=== PATIENT | male | born 1995 | race Caucasian/White ===

== ENCOUNTER → 2016-11-11 | Outpatient (CLI) | payer BC ==
[~2016-11-11] MED LIST: CYAN1TAB46 PO; DOCU-168 PO; OMEP-122 PO; RIVA20TA PO
--- NOTE | 2016-11-11 14:27 | DI ---
Indication: ITS.REASON: M79.604 PAIN IN RIGHT LEG; Z86.711 HX OF PE PROCEDURE: US VENOUS DUPLEX, LOWER EXT RT: Encounter: Initial Comparison: February 27, 2016 Technique: Color Doppler duplex and grayscale sonographic imaging of the right lower extremity was performed. Findings: There is no evidence for acute deep venous thrombosis in the right thigh. Specifically, serial graded compression was performed from the inguinal ligament to the popliteal bifurcation, on the right thigh, demonstrating appropriate compressibility of the deep venous system. In addition, color and pulsed Doppler demonstrate appropriate spontaneous flow, variation with respiration, and augmentation with calf compression. At the ankle, normal flow is identified in the posterior tibial veins; these vessels are also normal in caliber. Impression: No evidence of acute DVT in the right lower limb. .
== END ==
LOC: IMA 13:18
PROVIDERS: ATTEND Family Medicine
DX: M79.604 Pain in right leg (principal); Z86.711 Personal history of pulmonary embolism

== ENCOUNTER 2016-12-04 09:09 | Day surgery (SDC) | payer BC ==
[~2016-12-04] VITALS: Ht 188 cm; Wt 108.9 kg
[2016-12-04] VITALS (7 sets, daily range): BP systolic 106–125; BP diastolic 62–69; PULSE 53–66; RESP 16–24; TEMP 97.7; O2SAT 99–100; Ht 188 cm; Wt 108.9 kg
[~2016-12-04 09:09] MED LIST changes: -DOCU-168 PO; +LIDOCAINE 1% (10mg/ml) 2ml SDV INJ ONE; +LR 1,000 ML IV SCH; -OMEP-122 PO
--- OUTSIDE RECORDS SUMMARY | 2016-12-04 09:14 | XMS REPORT | Referral Summary ---
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 Role Phone Deion Calero II Primary Care Physician [phone] Encounter VC Date(s): 01/12/16 - 01/13/16 [facility] [address] [place] [address] [phone] Discharge Diagnosis: Fever Discharge Diagnosis: Atelectasis Discharge Diagnosis: Post-op pain Discharge Disposition: 01-Home or Self Care Attending Physician: Joselito Sanchez DO Admitting Physician: Joselito Sanchez DO Vital Signs Most recent to 1 oldest [Reference Range]: Temperature Oral 37.6 degC [35.8-37.3 degC] *HI* (01/12/16 7:17 PM) Peripheral Pulse 97 bpm Rate [60-100 bpm] (01/13/16 4:40 AM) Heart Rate Monitored 88 bpm [60-100 bpm] (01/13/16 3:52 AM) Respiratory Rate 18 br/min [14-20 br/min] (01/13/16 4:40 AM) Blood Pressure 139/68 mmHg [90-140/60-90 mmHg] (01/13/16 4:40 AM) Mean Arterial 100 mmHg Pressure, Cuff (01/13/16 3:52 AM) SpO2 97 % (01/13/16 4:40 AM) Problem List Condition Effective Dates Status Health Status Informant Acute Resolved pain(Confirmed) Bleeding Active precautions(Confirme d)1 Impaired skin Resolved integrity(Confirmed) 2 Knowledge Resolved deficit(Confirmed)3 Tissue perfusion Resolved alteration(Confirmed )4 1Problem added automatically by system based on initiation of Bleeding Precautions Plan of Care 2Problem added automatically by system based on initiation of Impaired Skin Integrity Plan of Care 3Problem added automatically by system based on initiation of Knowledge Deficit Plan of Care 4Problem added automatically by system based on initiation of Tissue Perfusion Cerebral Plan of Care Allergies, Adverse Reactions, Alerts No Known Medication Allergies Medications folic acid See Instructions, 1 tab Daily, 0 Refill(s) Start Date: 12/17/15 Status: Ordered omeprazole Oral, Daily, 0 Refill(s) Start Date: 12/17/15 Status: Ordered Percocet 10/325 oral tablet 1 tabs, Oral, q4hr, as needed for pain, X 3 days, # 18 tabs, 0 Refill(s) Start Date: 01/13/16 Stop Date: 01/16/16 Status: Ordered rivaroxaban 20 mg oral tablet 20 mg 1 tabs, Oral, With Dinner, Start after completing 15mg BID load (see start date), # 90 tabs, 0 Refill(s) Start Date: 10/09/15 Status: Ordered Vitamin B12 1000 mcg oral tablet 1,000 mcg 1 tabs, Oral, Daily, 0 Refill(s) Start Date: 12/17/15 Status: Ordered Vitamin B6 See Instructions, 1 tab Daily, 0 Refill(s) Start Date: 12/17/15 Status: Ordered Xanax 0.25 mg oral tablet 0.25 mg 1 tabs, Oral, As Indicated, 0 Refill(s) Start Date: 12/17/15 Status: Ordered Results Hematology Most recent to 1 oldest [Reference Range]: WBC [4.8-10.8 10.1 10*3/uL 10*3/uL] (01/12/16 8:20 PM) RBC [4.60-6.20] 4.79 (01/12/16 8:20 PM) Hgb [14.0-18.0 14.6 gm/dL gm/dL] (01/12/16 8:20 PM) Hct [42.0-52.0 %] 42.9 % (01/12/16 8:20 PM) MCV [82.0-99.0 fL] 89.6 fL (01/12/16 8:20 PM) MCH [27.0-32.0 pg] 30.5 pg (01/12/16 8:20 PM) MCHC [32.0-36.0 34.0 gm/dL gm/dL] (01/12/16 8:20 PM) RDW [11.5-14.5 %] 13.4 % (01/12/16 8:20 PM) Platelet [150-400 218 10*3/uL 10*3/uL] (01/12/16 8:20 PM) MPV [9.4-12.3 fL] 9.5 fL (01/12/16 8:20 PM) Immature 0.3 % Granulocytes (01/12/16 8:20 PM) [0.0-1.0 %] Neutrophils [51-75 69 % %] (01/12/16 8:20 PM) Lymphocytes [20-46 14 % %] *LOW* (01/12/16 8:20 PM) Monocytes [4-11 %] 16 % *HI* (01/12/16 8:20 PM) Eosinophils [0-4 %] 1 % (01/12/16 8:20 PM) Basophils [0-2 %] 0 % (01/12/16 8:20 PM) Neutro Absolute 7.04 10*3 [1.90-7.00 10*3] *HI* (01/12/16 8:20 PM) Lymph Absolute 1.42 10*3 [0.80-3.30 10*3] (01/12/16 8:20 PM) [place]ulk Absolute 1.58 10*3 [0.30-1.00 10*3] *HI* (01/12/16 8:20 PM) Eos Absolute 0.05 10*3 [0.00-0.50 10*3] (01/12/16 8:20 PM) Baso Absolute 0.02 10*3 [0.00-0.20 10*3] (01/12/16 8:20 PM) Nucleated RBC 0.0 /100 WBC Automated [0 /100 (01/12/16 8:20 PM) WBC] Chemistry Most recent to 1 oldest [Reference Range]: Sodium Lvl [136-144 134 mEq/L mEq/L] *LOW* (01/12/16 8:20 PM) Potassium Lvl 3.6 mEq/L [3.6-5.1 mEq/L] (01/12/16 8:20 PM) Chloride [99-109 99 mEq/L mEq/L] (01/12/16 8:20 PM) CO2 [22-32 mEq/L] 29 mEq/L (01/12/16 8:20 PM) AGAP [3-20] 6 (01/12/16 8:20 PM) BUN [4-20 mg/dL] 9 mg/dL (01/12/16 8:20 PM) Glucose Lvl [70-100 103 mg/dL mg/dL] *HI* (01/12/16 8:20 PM) Creatinine Lvl 0.99 mg/dL [0.64-1.27 mg/dL] (01/12/16 8:20 PM) eGFR [>60] >60 1 (01/12/16 8:20 PM) Calcium Lvl 9.0 mg/dL [8.6-10.0 mg/dL] (01/12/16 8:20 PM) Lactic Acid Lvl 0.9 mEq/L [0.5-2.2 mEq/L] (01/12/16 11:55 PM) 1Result Comment: Multiply eGFR results by 1.21 for race. Urinalysis Most recent to 1 oldest [Reference Range]: UA Color Yellow (01/13/16 12:28 AM) UA Appear Clear (01/13/16 12:28 AM) UA pH [5.0-8.0] 7.0 (01/13/16 12:28 AM) UA Leuk Est Negative [Negative] (01/13/16 12:28 AM) UA Nitrite Negative [Negative] (01/13/16 12:28 AM) UA Protein Negative [Negative] (01/13/16 12:28 AM) UA Glucose Negative [Negative] (01/13/16 12:28 AM) UA Ketones Negative [Negative] (01/13/16 12:28 AM) UA Urobilinogen Negative [<1.0] (01/13/16 12:28 AM) UA Bili [Negative] Negative (01/13/16 12:28 AM) UA Blood [Negative] Negative (01/13/16 12:28 AM) UA Spec Grav 1.005 [1.003-1.030] (01/13/16 12:28 AM) Type Clean Catch (01/13/16 12:28 AM) Microbiology Reports TEST: Blood Culture STATUS: Order in Progress BODY SITE: SOURCE: Blood COLLECTED DATE/TIME: 01/12/16 11:55 PM Blood Culture No growth after 12 hours incubation. Nursing unit will be called if growth is detected. - A blood culture drawn through a catheter with a differential time to positivity at least 2 hours sooner than one drawn from a peripheral vein at the same time suggests a catheter-related bloodstream infection. TEST: Blood Culture STATUS: Order in Progress BODY SITE: SOURCE: Blood COLLECTED DATE/TIME: 01/12/16 11:55 PM Blood Culture No growth after 12 hours incubation. Nursing unit will be called if growth is detected. - A blood culture drawn through a catheter with a differential time to positivity at least 2 hours sooner than one drawn from a peripheral vein at the same time suggests a catheter-related bloodstream infection. Immunizations No data available for this section Procedures No data available for this section Social History Social History Type Response Smoking Status Never smoker Assessment and Plan No data available for this section
--- OUTSIDE RECORDS SUMMARY | 2016-12-04 09:14 | XMS REPORT | Referral Summary ---
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 Name Role Phone No PCP, Pt States Primary Care Physician [phone] Encounter VC Date(s): 09/14/15 - 09/19/15 [facility] [address] [place] [address] [phone] Discharge Disposition: 01-Home or Self Care Attending Physician: Stevie King MD Admitting Physician: Svetlana Reddy MD Vital Signs Most recent to 1 oldest [Reference Range]: Temperature Temporal 36.1 degC Artery [36.3-37.8 *LOW* degC] (09/19/15 8:00 AM) Heart Rate Monitored 54 bpm [60-100 bpm] *LOW* (09/19/15 10:38 AM) Respiratory Rate 12 br/min [14-20 br/min] *LOW* (09/18/15 8:00 PM) Blood Pressure 130/70 mmHg [90-140/60-90 mmHg] (09/19/15 10:38 AM) Mean Arterial 88 mmHg Pressure, Cuff (09/19/15 10:38 AM) SpO2 98 % (09/19/15 10:38 AM) Problem List Condition Effective Dates Status [...] Reactions, Alerts No Known Medication Allergies Medications Emergen-C oral powder for reconstitution Oral, Daily, 0 Refill(s) Start Date: 09/15/15 Status: Ordered Moyers 5 mg-325 mg oral tablet 1-2 tabs, Oral, q4hr, Pain Moderate (4-6), # 24 tabs, 0 Refill(s) Start Date: 09/18/15 Status: Ordered ProAir HFA 90 mcg/inh inhalation aerosol 2 puffs, Inhalation, QID, as needed for wheezing, 0 Refill(s) Start Date: 09/15/15 Status: Ordered rivaroxaban 15 mg oral tablet 15 mg 1 tabs, Oral, BIDWM, # 40 tabs, 0 Refill(s) Start Date: 09/18/15 Stop Date: 10/08/15 Status: Ordered rivaroxaban 20 mg oral tablet 20 mg 1 tabs, Oral, With Dinner, Start after completing 15mg BID load (see start date), # 90 tabs, 0 Refill(s) Start Date: 10/09/15 Status: Ordered Results Hematology Most recent to 1 oldest [Reference Range]: WBC [4.8-10.8 9.0 10*3/uL 10*3/uL] (09/18/15 3:56 AM) RBC [4.60-6.20] 4.92 (09/18/15 3:56 AM) Hgb [14.0-18.0 14.6 gm/dL gm/dL] (09/18/15 3:56 AM) Hct [42.0-52.0 %] 42.4 % (09/18/15 3:56 AM) MCV [82.0-99.0 fL] 86.2 fL (09/18/15 3:56 AM) MCH [27.0-32.0 pg] 29.7 pg (09/18/15 3:56 AM) MCHC [32.0-36.0 34.4 gm/dL gm/dL] (09/18/15 3:56 AM) RDW [11.5-14.5 %] 14.3 % (09/18/15 3:56 AM) Platelet [150-400 211 10*3/uL 10*3/uL] (09/18/15 3:56 AM) MPV [9.4-12.3 fL] 9.6 fL (09/18/15 3:56 AM) Immature 0.9 % Granulocytes (09/18/15 3:56 AM) [0.0-1.0 %] Neutrophils [51-75 58 % %] (09/18/15 3:56 AM) Lymphocytes [20-46 28 % %] (09/18/15 3:56 AM) Monocytes [4-11 %] 9 % (09/18/15 3:56 AM) Eosinophils [0-4 %] 4 % (09/18/15 3:56 AM) Basophils [0-2 %] 0 % (09/18/15 3:56 AM) Neutro Absolute 5.25 10*3 [1.90-7.00 10*3] (09/18/15 3:56 AM) Lymph Absolute 2.48 10*3 [0.80-3.30 10*3] (09/18/15 3:56 AM) [place] Absolute 0.82 10*3 [0.30-1.00 10*3] (09/18/15 3:56 AM) Eos Absolute 0.33 10*3 [0.00-0.50 10*3] (09/18/15 3:56 AM) Baso Absolute 0.03 10*3 [0.00-0.20 10*3] (09/18/15 3:56 AM) Schistocyte Not Seen (09/15/15 12:29 AM) Nucleated RBC 0.0 /100 WBC Automated [0 /100 (09/18/15 3:56 AM) WBC] Differential Scanned Slide (09/15/15 12:29 AM) Coagulation Most recent to 1 oldest [Reference Range]: INR [0.9-1.2] 1.3 *HI* (09/15/15 6:48 AM) PTT [25.0-35.0 41.5 seconds seconds] *HI* (09/18/15 3:56 AM) Schistocyte Coag None [None] (09/15/15 12:30 AM) Fibrinogen Lvl 442 mg/dL [187-520 mg/dL] (09/15/15 12:30 AM) D-Dimer [0-600 6817 ng{FEU}/mL 1 ng{FEU}/mL] *HI* (09/15/15 12:30 AM) 1Result Comment: A D Dimer result of <500 ng/mL FEU has a negative predictive value of approximately 100% for the exclusion of DVT and acute PE. Chemistry Most recent to 1 oldest [Reference Range]: Sodium Lvl [136-144 138 mEq/L mEq/L] (09/18/15 3:56 AM) Potassium Lvl 3.9 mEq/L [3.6-5.1 mEq/L] (09/18/15 3:56 AM) Chloride [99-109 104 mEq/L mEq/L] (09/18/15 3:56 AM) CO2 [22-32 mEq/L] 28 mEq/L (09/18/15 3:56 AM) AGAP [3-20] 6 (09/18/15 3:56 AM) BUN [4-20 mg/dL] 8 mg/dL (09/18/15 3:56 AM) Glucose Lvl [70-100 90 mg/dL mg/dL] (09/18/15 3:56 AM) Creatinine Lvl 1.13 mg/dL [0.64-1.27 mg/dL] (09/18/15 3:56 AM) eGFR [>60] >60 1 (09/18/15 3:56 AM) Calcium Lvl 9.2 mg/dL [8.6-10.0 mg/dL] (09/18/15 3:56 AM) Albumin Lvl [3.5-4.8 3.8 gm/dL gm/dL] (09/18/15 3:56 AM) Total Protein 7.8 gm/dL [6.1-7.9 gm/dL] (09/15/15 12:30 AM) Globulin [1.9-4.3 3.6 gm/dL gm/dL] (09/15/15 12:30 AM) ALT [17-63 U/L] 35 U/L (09/15/15 12:30 AM) AST [15-41 U/L] 29 U/L (09/15/15 12:30 AM) Alk Phos [26-104 75 U/L U/L] (09/15/15 12:30 AM) Bili Total [0.2-1.2 1.0 mg/dL 2 mg/dL] (09/15/15 12:30 AM) LDH [98-192 U/L] 216 U/L *HI* (09/16/15 5:28 AM) Magnesium Lvl 2.4 mg/dL [1.8-2.5 mg/dL] (09/18/15 3:56 AM) Phosphorus [2.4-4.7 5.1 mg/dL 3 mg/dL] *HI* (09/18/15 3:56 AM) Calcium Ionized 1.23 mmol/L [1.19-1.41 mmol/L] (09/15/15 12:29 AM) BNP [0-99 pg/mL] 129 pg/mL *HI* (09/15/15 6:48 AM) Troponin [<0.06 <0.05 ng/mL ng/mL] (09/15/15 6:48 AM) Lipase Lvl [8-48 38 U/L U/L] (09/15/15 6:48 AM) AFP [0.0-8.8 Intl 2.7 Intl Units/mL Units/mL] (09/16/15 5:28 AM) Lactic Acid Lvl 1.8 mEq/L [0.5-2.2 mEq/L] (09/15/15 12:30 AM) CEA [0.0-5.0 ng/mL] 1.0 ng/mL 4 (09/16/15 5:28 AM) TSH with Reflex Free 1.09 T4 [0.35-5.50] (09/15/15 12:30 AM) 1Result Comment: Multiply eGFR results by 1.21 for race. 2Result Comment: Naproxen, specifically the metabolite O-desmethylnaproxen, may cause spurious elevation in Total Bilirubin levels. 3Result Comment: High dosages of liposomal Amphotericin B (AmBisome) therapy or other drug preparations that use a liposomal envelope to facilitate drug delivery may cause falsely elevated results for phosphorus. 4Result Comment: Normal Ranges For CEA; Males: Non Smokers: <3.4 ng/ml Smokers: <6.2 ng/ml Females: Non Smokers: <2.5 ng/ml Smokers: <4.9 ng/ml Toxicology Most recent to 1 oldest [Reference Range]: U Amphetamine Scrn Negative (09/15/15 12:38 AM) U Cocaine Scrn Negative (09/15/15 12:38 AM) U Cannab Scrn Positive *ABN* (09/15/15 12:38 AM) U Opiate Scrn Negative (09/15/15 12:38 AM) U PCP Scrn Negative (09/15/15 12:38 AM) U Benzodiazepine Negative Scrn (09/15/15 12:38 AM) U Barbiturate Scrn Negative (09/15/15 12:38 AM) Methadone Lvl Negative (09/15/15 12:38 AM) Tricyclics Not Detected 1 (09/15/15 12:38 AM) 1Result Comment: Cut-off concentrations: Amphetamines: 1000 ng/mL Cocaine: 300 ng/mL Cannabinoid: 50 ng/mL Opiate: 300 ng/mL Phencyclidine (PCP): 25 ng/mL Benzodiazepine: 200 ng/mL Barbiturate: 200 ng/mL Methadone: 300 ng/mL Tricyclic: 300 ng/mL The urine drug screen assays are qualitative screens. A more specific GC/MS method must be performed to obtain a confirmed analytical result. Unconfirmed screening results must not be used for non-medical purposes(e.g. employment or legal testing) Immunizations No data available for this section Procedures Procedure Date Related Diagnosis Body Site Insertion of intravascular vena cava filter, 09/15/15 endovascular approach including vascular access, vessel selection, and radiological supervision and interpretation, intraprocedural roadmapping, and imaging guidance (ultrasound and fluoroscopy), when performed Social History Social History Type Response Smoking Status Never smoker Assessment and Plan No data available for this section
--- OUTSIDE RECORDS SUMMARY | 2016-12-04 09:14 | XMS REPORT | Referral Summary ---
Author Author Via [facility] Organization [facility] Address Unknown Phone Unavailable Care Team Providers Care Cop Breaker Name Role Phone Deion Calero II Primary Care Physician [phone] Encounter VC Date(s): 03/27/16 - 03/27/[address] [facility] [address] [place], [place] [address] Discharge Disposition: 01-Home or Self Care Attending Physician: Nate Prabhakar MD Admitting Physician: Nate Prabhakar MD Vital Signs Most recent to 1 oldest [Reference Range]: Temperature Temporal 35.8 degC Artery [36.3-37.8 *LOW* degC] (03/27/16 1:42 PM) Peripheral Pulse 58 bpm Rate [60-100 bpm] *LOW* (03/27/16 9:05 AM) Heart Rate Monitored 55 bpm [60-100 bpm] *LOW* (03/27/16 3:30 PM) Respiratory Rate 16 br/min [14-20 br/min] (03/27/16 3:30 PM) Blood Pressure 128/81 mmHg [90-140/60-90 mmHg] (03/27/16 3:30 PM) Mean Arterial 93 mmHg Pressure, Cuff (03/27/16 3:30 PM) SpO2 99 % (03/27/16 3:30 PM) Problem List Condition Effective Dates Status Health Status Informant Acute Resolved pain(Confirmed) Bleeding Active precautions(Confirme d)1 Asthma(Confirmed) Active patient Impaired skin Resolved integrity(Confirmed) 2 Knowledge Resolved deficit(Confirmed)3 Hiatal Active patient hernia(Confirmed) PE (pulmonary Resolved patient embolism)(Confirmed) Tissue perfusion Resolved alteration(Confirmed )4 1Problem added [...] 0 Refill(s) Start Date: 12/17/15 Status: Ordered rivaroxaban 20 mg oral tablet [...] to 1 oldest [Reference Range]: WBC [4.8-10.8 7.5 10*3/uL 10*3/uL] (03/27/16 8:49 AM) RBC [4.60-6.20] 4.78 (03/27/16 8:49 AM) Hgb [14.0-18.0 14.3 gm/dL gm/dL] (03/27/16 8:49 AM) Hct [42.0-52.0 %] 42.6 % (03/27/16 8:49 AM) MCV [82.0-99.0 fL] 89.1 fL (03/27/16 8:49 AM) MCH [27.0-32.0 pg] 29.9 pg (03/27/16 8:49 AM) MCHC [32.0-36.0 33.6 gm/dL gm/dL] (03/27/16 8:49 AM) RDW [11.5-14.5 %] 13.7 % (03/27/16 8:49 AM) Platelet [150-400 229 10*3/uL 10*3/uL] (03/27/16 8:49 AM) MPV [9.4-12.3 fL] 9.8 fL (03/27/16 8:49 AM) Immature 0.4 % Granulocytes (03/27/16 8:49 AM) [0.0-1.0 %] Neutrophils [51-75 50 % %] *LOW* (03/27/16 8:49 AM) Lymphocytes [20-46 34 % %] (03/27/16 8:49 AM) Monocytes [4-11 %] 14 % *HI* (03/27/16 8:49 AM) Eosinophils [0-4 %] 2 % (03/27/16 8:49 AM) Basophils [0-2 %] 0 % (03/27/16 8:49 AM) Neutro Absolute 3.75 10*3 [1.90-7.00 10*3] (03/27/16 8:49 AM) Lymph Absolute 2.56 10*3 [0.80-3.30 10*3] (03/27/16 8:49 AM) [place] Absolute 1.02 10*3 [0.30-1.00 10*3] *HI* (03/27/16 8:49 AM) Eos Absolute 0.15 10*3 [0.00-0.50 10*3] (03/27/16 8:49 AM) Baso Absolute 0.03 10*3 [0.00-0.20 10*3] (03/27/16 8:49 AM) Nucleated RBC 0.0 /100 WBC Automated [0 /100 (03/27/16 8:49 AM) WBC] Coagulation Most recent to 1 oldest [Reference Range]: INR [0.9-1.2] 1.0 (03/27/16 8:49 AM) PTT [25.0-35.0 32.6 seconds seconds] (03/27/16 8:49 AM) Chemistry Most recent to 1 oldest [Reference Range]: Sodium Lvl [136-144 138 mEq/L mEq/L] (03/27/16 8:49 AM) Potassium Lvl 4.1 mEq/L [3.6-5.1 mEq/L] (03/27/16 8:49 AM) Chloride [99-109 105 mEq/L mEq/L] (03/27/16 8:49 AM) CO2 [22-32 mEq/L] 26 mEq/L (03/27/16 8:49 AM) AGAP [3-20] 7 (03/27/16 8:49 AM) BUN [4-20 mg/dL] 14 mg/dL (03/27/16 8:49 AM) Glucose Lvl [70-100 89 mg/dL mg/dL] (03/27/16 8:49 AM) Creatinine Lvl 0.98 mg/dL [0.64-1.27 mg/dL] (03/27/16 8:49 AM) eGFR [>60] >60 1 (03/27/16 8:49 AM) Calcium Lvl 8.9 mg/dL [8.6-10.0 mg/dL] (03/27/16 8:49 AM) 1Result Comment: Multiply eGFR results by 1.21 for race. Immunizations No data available for this section Procedures Procedure Date Related Diagnosis Body Site Retrieval (removal) of intravascular vena 03/27/16 cava filter, endovascular approach including vascular access, vessel selection, and radiological supervision and interpretation, intraprocedural roadmapping, and imaging guidance (ultrasound and fluoroscopy), when Ankle Foot Social History Social History Type Response Smoking Status Never smoker Assessment and Plan No data available for this section
--- OUTSIDE RECORDS SUMMARY | 2016-12-04 09:14 | XMS REPORT | Referral Summary ---
Author Author [facility] Organization [facility] Address Unknown Phone Unavailable Care Team Providers Care Baseball Hand Sewer Name Role Phone Deion Calero II Primary Care Physician [phone] Encounter [facility] [id number] Date(s): 01/09/16 - 01/09/16 [facility] [address] [place] [id number] Discharge Disposition: 01-Home or Self Care Attending Physician: Nate Prabhakar MD Admitting Physician: Nate Prabhakar MD Vital Signs No data available for this section Problem List Condition Effective Dates Status Health [...] Refill(s) Start Date: 12/17/15 Status: Ordered Results No data available for this section Immunizations No data available for this section Procedures No data available for this section Social History Social History Type Response Smoking Status Never smoker Assessment and Plan No data available for this section
--- OUTSIDE RECORDS SUMMARY | 2016-12-04 09:14 | XMS REPORT | Referral Summary ---
Author Author [facility] Organization [facility] Address Unknown Phone Unavailable Care Team Providers Care Patent Leather Sorter Name Role Phone Deion Calero II Primary Care Physician [phone] Encounter [facility] [id number] Date(s): 01/14/16 - 01/14/16 [facility] [address] [place] [address] Discharge Diagnosis: Hx of pulmonary embolus Discharge Diagnosis: Fracture, fibula Discharge Diagnosis: Hyperhomocystinemia Discharge Disposition: 01-Home or Self Care Attending Physician: Nate Prabhakar MD Admitting Physician: Nate Prabhakar MD Vital Signs Most recent to 1 oldest [Reference Range]: Peripheral Pulse 78 bpm Rate [60-100 bpm] (01/14/16 11:56 AM) Respiratory Rate 20 br/min [14-20 br/min] (01/14/16 11:56 AM) Blood Pressure 114/78 mmHg [90-140/60-90 mmHg] (01/14/16 11:56 AM) SpO2 97 % (01/14/16 11:56 AM) Problem List Condition Effective Dates Status [...] Smoking Status Never smoker Assessment and Plan Extracted from: Title: Office Visit Note Author: Nate Prabhakar Date: 01/14/16 [facility] Assessment/Plan 1.Hx of pulmonary embolus Doing well continue with anticoagulation Patient had an IVC filter placed back in August to discuss with radiology retrieval of IVC Recent echocardiogram done shows no evidence of chronic pulmonary pulmonary hypertension or RV strain 2.Hyperhomocystinemia As discussed with hematology 3.Fracture, fibula Medication of the recent surgery will follow-up with an ultrasound of the lower extremityand few months
--- OUTSIDE RECORDS SUMMARY | 2016-12-04 09:14 | XMS REPORT | Referral Summary ---
Author Author [facility] Organization [facility] Address Unknown Phone Unavailable Care Team Providers Care Ob/Gyn Nurse Name Role Phone Deion Calero II Primary Care Physician [phone] Encounter [facility] [id number] Date(s): 10/02/15 - 10/02/15 [facility] [address] [place] [id number] Discharge Diagnosis: Pulmonary embolism Discharge Disposition: 01-Home or Self Care Attending Physician: Nate Prabhakar MD Admitting Physician: Nate Prabhakar MD Vital Signs Most recent to 1 oldest [Reference Range]: Peripheral Pulse 60 bpm Rate [60-100 bpm] (10/02/15 3:32 PM) Respiratory Rate 16 br/min [14-20 br/min] (10/02/15 3:32 PM) Blood Pressure 130/82 mmHg [90-140/60-90 mmHg] (10/02/15 3:32 PM) SpO2 97 % (10/02/15 3:32 PM) Problem List Condition Effective Dates Status [...] 0 Refill(s) Start Date: 09/15/15 Status: Ordered [place] 5 mg-325 mg oral tablet 1-2 tabs, [...] Refill(s) Start Date: 10/09/15 Status: Ordered Results No data available for this section Immunizations No data available for this section Procedures No data available for this section Social History Social History Type Response Smoking Status Never smoker Assessment and Plan Extracted from: Title: Ambulatory Patient Education Author: Nate Prabhakar Date: 10/02/15 [facility] Musculoskeletal Venous Thromboembolism Venous thromboembolism (VTE) is a condition where a blood clot (thrombus) develops in the body. A thrombus usually occurs in a deep vein in the leg or pelvis but can occur in an upper extremity. Sometimes pieces of the thrombus can break off from its original place of development and travel through the bloodstream to other parts of the body. When a thrombus breaks off and travels through the bloodstream, it is called an embolism. The embolism can block the blood flow in the blood vessels of other organs. There are two serious types of VTE: Deep vein thrombosis (DVT). A DVT is a thrombus that usually occurs in a deep vein of the lower legs, pelvis, or in an upper extremity. Pulmonary embolism (PE). A PE occurs when an embolism has formed and traveled to the lungs. A PE can block or decrease the blood flow in one or both lungs. Venous thromboembolism is a serious health condition that can cause disability or . It is very important to not ignore symptoms or delay treatment. CAUSES A blood clot can form in a vein from different conditions. A blood clot can develop due to: Blood flow within a vein that is sluggish or very slow. Medical conditions that make the blood clot easily. Vein damage. RISK FACTORS Risk factors can increase your risk of developing a blood clot. Risk factors can include: Smoking. Obesity. Age. Immobility or sedentary lifestyle. Sitting or standing for long periods of time. Chronic or long-term bedrest. Medical or past history of blood clots. Family history of blood clots. Hip, leg, or pelvis injury or trauma. Major surgery, especially surgery on the hip, knee, or abdomen. and childbirth. control pills and hormone replacement therapy. Medical conditions such as Peripheral vascular disease (PVD). Diabetes. Cancer. SIGNS AND SYMPTOMS Symptoms of VTE can depend on where the clot is located and if the clot breaks off and travels to another organ. Sometimes, there may be no symptoms. DVT symptoms can include: Swelling of the leg or arm, especially on one side. Warmth and redness of the leg or arm, especially on one side. Pain in an arm or leg. Leg pain may be more noticeable or worse when standing or walking. PE symptoms can include: Shortness of breath. Coughing. Coughing up blood or blood-tinged mucus (hemoptysis). Chest pain or chest pain with deep breaths (pleuritic chest pain). Apprehension, anxiety, or a feeling of impending doom. Rapid heartbeat. A PE is a medical emergency. Call your local emergency services (911 in [place] if you have these symptoms. DIAGNOSIS A venous thromboembolism is diagnosed by: Looking at your medical history and risk factors. Your health care provider will perform a physical exam. Blood tests, including blood work of how your blood clots. Imaging tests that can detect a blood clot may be ordered. These can include: Ultrasonography. Computed Tomography (CT) scan. Magnetic Resonance Imaging (MRI). Echocardiography. Electrocardiography. TREATMENT Initial treatment: When a venous thromboembolism has been confirmed, initial treatment consists of using blood-thinning (anticoagulant) medicines. Anticoagulant medicines affect how your blood clots and can cause bleeding. Therefore, when you are on anticoagulants, your blood clotting times are monitored by blood tests called prothrombin time (PT) and International Normalized Ratio (INR). Typically, the anticoagulants are intravenous (IV) heparin and warfarin. IV heparin is normally started right away because it has a rapid onset of action and thins the blood quickly. Warfarin is also started with IV heparin therapy. Warfarin has a slower onset of action and takes longer to work. This overlap of IV heparin and oral warfarin therapy is continued until PT and INR levels are therapeutic. After the PT and INR levels are therapeutic, IV heparin is discontinued and you are maintained on warfarin. Other treatment options: Catheter-directed thrombolysis. This is a clot-busting therapy for a DVT in which a small, flexible hollow tube (catheter) is threaded to the blood clot inside the vein. A clot-busting drug (thrombolytic) is then infused through the catheter. The thrombolytic helps to break up the clot in the vein and restore blood flow. Direct thrombin inhibitor (DTI) medicine. A DTI is an anticoagulant that slows blood clotting. It is given through an IV. If you cannot take an anticoagulant, a filter called an inferior vena cava filter (IVC filter) can be placed. The IVC filter is placed in a large vein, in either your leg or abdomen. An IVC filter is left in the vein permanently. The IVC filter can help prevent blood clots from going to your lungs. Surgery. Blood clots may need to be removed surgically if other treatment options are not working or cannot be used. Types of surgery can include: Thrombectomy. Embolectomy. Venous stenting. Pain medicine (analgesic). Medicine to control pain is given in addition to the above treatment options. Home treatment: Continued treatment at home consists of taking either warfarin or under-the -skin (subcutaneous) injections of an anticoagulant. HOME CARE INSTRUCTIONS Take medicines only as directed by your health care provider. Follow the directions carefully. Warfarin. Most people will continue taking warfarin. Your health care provider will advise you on the length of treatment (usually 3 to 6 months, sometimes lifelong). Too much and too little warfarin are both dangerous. Too much warfarin increases the risk of bleeding. Too little warfarin continues to allow the risk for blood clots. While taking warfarin, you will need to have regular blood tests to measure your blood clotting time. These blood tests usually include both the PT and INR tests. The PT and INR results allow your health care provider to adjust your dose of warfarin. The dose can change for many reasons. It is critically important that you take warfarin exactly as prescribed, and that you have your PT and INR levels drawn exactly as directed. Many foods, especially foods high in vitamin K can interfere with warfarin and affect the PT and INR results. Foods high in vitamin K include spinach, kale , broccoli, cabbage, eddie and turnip greens, [place] sprouts, peas, cauliflower, seaweed, and parsley as well as beef and pork liver, green tea, and soybean oil. You should eat a consistent amount of foods high in vitamin K. Avoid major changes in your diet, or notify your health care provider before changing your diet. Arrange a visit with a dietitian to answer your questions. Many medicines can interfere with warfarin and affect the PT and INR results. You must tell your health care provider about any and all medicines you take, including all vitamins and supplements. Be especially cautious with aspirin and anti-inflammatory medicines. Do not take or discontinue any prescribed or [id number] medicine except on the advice of your health care provider or pharmacist. Warfarin can have side effects, such as excessive bruising or bleeding. You will need to hold pressure over cuts for longer than usual. Your health care provider or pharmacist will discuss other potential side effects. Avoid sports or activities that may cause injury or bleeding. Be mindful when shaving, flossing your teeth, or handling sharp objects. Alcohol can change the body's ability to handle warfarin. It is best to avoid alcoholic drinks or consume only very small amounts while taking warfarin. Notify your health care provider if you change your alcohol intake. Notify your dentist or other health care providers before procedures. Activity. Ask your health care provider how soon you can go back to normal activities if you have had a blood clot. Exercise. It is very important to exercise and stay active to prevent future blood clots. This is especially important while traveling, sitting, or standing for long periods of time. Exercise your legs by walking or by pumping the muscles frequently. Compression stockings. You may need to wear compression stockings to help prevent a DVT. Smoking. If you smoke, quit. Ask your health care provider for help with quitting smoking. Learn as much as you can about VTE. Educating yourself can help prevent VTE from reoccurring. Wear a medical alert bracelet or carry a medical alert card. PREVENTION In-hospital prevention: Activity. Getting out of bed and walking while you are in the hospital can help prevent blood clots. Medicines may be given to help prevent blood clots. Sequential compression device (SCD). A SCD can help prevent blood clots in the lower legs. A compression sleeve is wrapped around each of your legs. The tubing of the sleeve is connected to a machine that pumps air into the compression sleeve. The pumping action of the sleeve helps circulate the blood in your legs. Compression stockings. Compression stockings are tight, elastic stockings that apply pressure to the lower legs and help prevent blood from pooling in the lower legs. Compression stockings are sometimes used with SCDs. General prevention: Exercise regularly if you are able. Avoid sitting or lying in bed for long periods of time without moving the legs. Do not smoke. If you smoke, quit. Ask your health care provider for help. Avoid exposure to smoke. Maintain a healthy weight. Women over the age of 35 should consider the risk of blood clots while taking control pills or hormone replacement therapy. Long distance travel along with prolonged sitting and standing can increase the risk of a DVT. Exercise your legs by walking or by pumping your leg muscles every hour. SEEK MEDICAL CARE IF: You feel faint or dizzy. You feel rapid or skipped heartbeats. You feel weaker or more tired than usual. You feel you are not getting better in the time expected. You believe you are having side effects from medicine. You have joint pain. You have abdominal pain. You have new or increased bruising. SEEK IMMEDIATE MEDICAL CARE IF: You vomit bright red blood or your vomit has a coffee ground type appearance. You have bowel movements that have bright red blood or are dark or tarry in appearance. You have bleeding from your rectum. You have pink or bloody urine. You develop breathing problems such as shortness of breath or pain with breathing. You are coughing up blood. You develop warmth, swelling, or redness in an arm or a leg. You have chest pain. You have a sudden, unexplained severe headache. You have a cut that does not stop bleeding after 10 minutes. You have a nosebleed that does not stop bleeding after 10 minutes. Document Released: 06/07/2010 Document Revised: 12/25/2014 Document Reviewed: [employer] Patient Information 2015 [employer]. This information is not intended to replace advice given to you by your health care provider. Make sure you discuss any questions you have with your health care provider. No follow up information was provided. Extracted from: Title: Office Visit Note Author: Nate Prabhakar Date: 10/02/15 [facility] Assessment/Plan 1.Pulmonary embolism Stable Continue with anticoagulation indefinitely for now, we'll have to defer to hematology for further evaluation of hypercoagulable state Patient is to get a follow-up echocardiogram and CTA in 3 months 2.Visual field defect Unclear if the patient has anxiety but he does report that he has some visual field defect. On exam today there is no evidence of any visual field defect or any abnormalities with cranial nerves 3, 4 or 6. However given concern for risk of bleed by the patient was sent for CT had. Additionally we'll refer the patient for ophthalmology forevaluation of his visual field and
--- OUTSIDE RECORDS SUMMARY | 2016-12-04 09:14 | XMS REPORT | Referral Summary ---
Author Author [facility] Organization [facility] Address Unknown Phone Unavailable Care Team Providers Care Digital Media Intern Name Role Phone Deion Calero II Primary Care Physician [phone] Encounter [facility] [id number] Date(s): 12/17/15 - 12/17/15 [facility] [address] [place] [id number] Discharge Diagnosis: Hyperhomocystinemia Discharge Diagnosis: Palpitations Discharge Diagnosis: Hx pulmonary embolism Discharge Disposition: 01-Home or Self Care Attending Physician: Nate Prabhakar MD Admitting Physician: Nate Prabhakar MD Vital Signs Most recent to 1 oldest [Reference Range]: Temperature Oral 36.9 degC [35.8-37.3 degC] (12/17/15 12:34 PM) Peripheral Pulse 58 bpm Rate [60-100 bpm] *LOW* (12/17/15 12:34 PM) Respiratory Rate 18 br/min [14-20 br/min] (12/17/15 12:34 PM) Blood Pressure 102/68 mmHg [90-140/60-90 mmHg] (12/17/15 12:34 PM) SpO2 97 % (12/17/15 12:34 PM) Problem List Condition Effective Dates Status [...]
--- OUTSIDE RECORDS SUMMARY | 2016-12-04 09:14 | XMS REPORT | Continuity of Care Document ---
Author Author [facility] Address Unknown Phone Unavailable Allergies Active Description Code Type Severity Reaction Onset Reported/Identified Relationship to Patient Clinical Status Yes NKA Drug N/A N/A Yes NKA Drug N/A N/A Yes No Known Medication Allergies NKMA N/A N/A 09/14/2015 Yes No Known Medication Allergies NKMA N/A N/A 09/14/2015 Medications Medication Packaging Start Date Stop Date Route Dosage Sig heparin(Heparin Bolus) 1 mL 09/14/2015 09/15/2015 IV Push 5,000 units 5,000 units=1 mL, IV Push, Once heparin(Heparin Bolus) 1 mL 09/14/2015 09/15/2015 IV Push 5,000 units 5,000 units=1 mL, IV Push, q6hr, PRN: Other (See Comment) morphine(morphine) 0.5 mL 09/14/2015 09/19/2015 IV Push 1 mg 1 mg=0.5 mL, IV Push, q2hr, PRN: Pain Severe (7-10) ondansetron(Zofran) 2 mL 09/14/2015 09/19/2015 IV Push 4 mg 4 mg= 2 mL, IV Push, q6hr, PRN: Nausea Sodium Chloride 0.9%(Sodium Chloride 0.9% 1,000 mL) 1,000 mL 09/14/2015 09/16/2015 IV 100 mL/hr, IV famotidine(Pepcid) 2 mL 09/14/2015 09/17/2015 IV Push 20 mg 20 mg =2 mL, IV Push, q12hr acetaminophen(acetaminophen) 2 tabs 09/14/2015 09/19/2015 Oral 650 mg 650 mg=2 tabs, Oral, q4hr, PRN: Other (See Comment) amoxicillin(amoxicillin) 09/15/2015 09/18/2015 Oral 1,000 mg 1, 000 mg, Oral, BID, Take for 10 days, started 09/11/2015 pm, 0 Refill(s) ibuprofen(ibuprofen) 09/15/2015 09/18/2015 Oral 800 mg 800 mg, Oral, q6hr, PRN: as needed for headache, 0 Refill(s) albuterol(ProAir HFA 90 mcg/inh inhalation aerosol) 2 puffs 09/15/2015 12/17/2015 Inhalation 2 puffs, Inhalation, QID, PRN: as needed for wheezing, 0 Refill(s) alteplase(alteplase) 50 mL 09/15/2015 09/15/2015 IV Piggyback 50 mg 50 mg=50 mL, 25 mL/hr, IV Piggyback, Once LORazepam(Ativan) 0.25 mL 09/15/2015 09/19/2015 IV Push 0.5 mg 0.5 mg=0.25 mL, IV Push, q4hr, PRN: Anxiety HYDROcodone-acetaminophen([place] 5 mg-325 mg oral tablet range dose) 201509/19/2015 Oral 1-2 tabs, Oral, q4hr, PRN: Pain Moderate (4-6) HYDROcodone-acetaminophen([place] 5 mg-325 mg oral tablet) 09/18/2015 12/17/2015 Oral 1-2 tabs, Oral, q4hr, PRN: Pain Moderate (4-6), 24 tabs , 0 Refill(s) rivaroxaban(rivaroxaban 20 mg oral tablet) 1 tabs 09/18/2015 Oral 20 mg 20 mg=1 tabs, Oral, With Dinner, Start after completing 15mg BID load (see start date), 90 tabs, 0 Refill(s) rivaroxaban(rivaroxaban 15 mg oral tablet) 1 tabs 09/18/2015 Oral 15 mg 15 mg=1 tabs, Oral, BIDWM, for 20 days, 40 tabs, 0 Refill(s) ALPRAZolam(Xanax 0.25 mg oral tablet) 1 tabs 12/17/2015 Oral 0.25 mg 0.25 mg=1 tabs, Oral, As Indicated, 0 Refill(s) omeprazole(omeprazole) 12/17/2015 Oral Oral, Daily, 0 Refill(s) folic acid(folic acid) 12/17/2015 See Instructions, 1 tab Daily, 0 Refill(s) acetaminophen-oxyCODONE 01/10/2016 01/13/2016 PO Percocet 5/325 oral tablet ondansetron(Zofran) 2 mL 01/12/2016 IV Push 4 mg 4 mg=2 mL, IV Push, q30min, PRN: Nausea or Vomiting morphine(morphine 4 mg/mL syringe 1 mL) 1 mL 01/12/20162015 IV Push 4 mg 4 mg=1 mL, IV Push, Once midazolam(Versed) 1 mL 03/27/2016 03/27/2016 IV Push 1 mg 1 mg= 1 mL, IV Push, q5min, PRN: Sedation fentaNYL(Sublimaze) 1 mL 03/27/2016 03/27/2016 IV Push 50 mcg 50 mcg=1 mL, IV Push, q5min, PRN: Sedation Sodium Chloride 0.9%(sodium chloride 0.9% 500 mL) 500 mL 03/27/2016 03/27/2016 IV KVO, IV HYDROcodone-acetaminophen(HYDROcodone-acetaminophen 5 mg- 325 mg oral tablet) 1 tabs 03/27/2016 03/27/2016 Oral 1 tabs, Oral, q4hr, PRN: Pain Moderate (4-6) Problems Date Dx Coded Attending Type Code Diagnosis Diagnosed By 10/04/2015 Stevie King Final B27.90 Infectious mononucleosis, unspecified without complication 10/04/2015 Stevie King Final D72.829 Elevated white blood cell count, unspecified 10/04/2015 Stevie King Final F12.10 Cannabis abuse, uncomplicated 10/04/2015 Stevie King Final F17.210 Nicotine dependence, cigarettes, uncomplicated 10/04/2015 Stevie King Final I26.02 Saddle embolus of pulmonary artery with acute cor pulmonale 10/04/2015 Stevie King Final I82.431 Acute embolism and thrombosis of right popliteal vein 10/04/2015 Stevie King Final K44.9 Diaphragmatic hernia without obstruction or gangrene 10/04/2015 Stevie King Final N28.9 Disorder of kidney and ureter, unspecified 10/04/2015 Stevie King Admitting R06.00 Dyspnea, unspecified 11/21/2015 Edgar Baum Final R20.2 Paresthesia of skin 11/21/2015 Edgar Baum Final R42 Dizziness and giddiness 11/30/2015 DavenportEdgar veras Final M79.1 Myalgia 11/30/2015 [place] Final R00.2 Palpitations 11/30/2015 Bautista Edgar Admitting R07.89 Other chest pain 12/21/2015 Yanira López Final R10.11 Right upper quadrant pain 01/10/2016 Shoshana Carter Admitting M25.572 Pain in left ankle and joints of left foot 01/10/2016 Shoshana Carter Final S82.442A Displaced spiral fracture of shaft of left fibula, initial e 01/10/2016 Shoshana Carter Final S93.05XA Dislocation of left ankle joint, initial encounter 01/10/2016 Shoshana Carter Final W19.XXXA Unspecified fall, initial encounter 01/10/2016 Shoshana Carter Final Y93.67 Activity, basketball 01/16/2016 Joselito Sanchez Reason R50.9 Fever, unspecified 04/02/2016 Nate Prabhakar Final Z45.89 Encounter for adjustment and management of other implanted devices 04/02/2016 Nate Prabhakar Reason Z86.711 Personal history of pulmonary embolism 04/02/2016 Yanira López Final M79.604 Pain in right leg 04/02/2016 Yanira López Final M79.605 Pain in left leg 04/02/2016 Yanira López Final Z86.711 Personal history of pulmonary embolism 05/29/2016 Efrain Serra Admitting M79.606 Pain in leg, unspecified 05/29/2016 Efrain Serra Final R25.2 Cramp and spasm Procedures Code Description Performed By Performed On [id number] Fluoroscopy of Inferior Vena Cava using Low Osmolar Contrast 09/15/2015 97459 Emergency department visit for the SISSY Will 11/21/2015 64349 Emergency department visit for the SISSY Will 11/29/2015 74559 Closed treatment of ankle dislocation; SISSY Randhawa 01/10/2016 26107 Emergency department visit for the SISSY Will 01/10/2016 81984 Intravenous infusion, hydration; initial SISSY FIORE 05/29/2016 75535 Emergency department visit for the evalu SISSY FIORE 05/29/2016 Results Test Result Range CB NURSING POC TEST - 11/21/15 17:52 CAPILLARY BLOOD GLUCOSE 114 mg/dL 70-100 COMMENT CB POC NO ACTION NR COMPREHENSIVE METABOLIC PANEL - 11/21/15 17:59 Sodium 134 mmol/L 135-145 Potassium 3.6 mmol/L 3.6-5.0 Chloride 95 mmol/L 101-111 Carbon Dioxide, Total 23 mmol/L 21-31 Glucose Level 123 mg/dL 70-100 BUN 15 mg/dL 6-20 Creatinine 1.0 mg/dL 0.5-1.2 Calcium 9.9 mg/dL 8.5-10.5 Total Protein 8.0 g/dL 6.0-8.0 Albumin 4.6 g/dL 3.2-5.5 Alkaline Phosphatase 74 U/L 42-121 AST (SGOT) 22 U/L 10-42 ALT (SGPT) 32 U/L 10-60 Total Bilirubin 0.5 mg/dL 0.2-1.0 Calculated GFR >60.0 mL/min/1.73sq >60 Anion Gap 16 mmol/L NR COMPREHENSIVE METABOLIC PANEL - 11/29/15 22:32 Sodium 139 mmol/L 135-145 Potassium 4.0 mmol/L 3.6-5.0 Chloride 97 mmol/L 101-111 Carbon Dioxide, Total 26 mmol/L 21-31 Glucose Level 99 mg/dL 70-100 BUN 11 mg/dL 6-20 Creatinine 1.1 mg/dL 0.5-1.2 Calcium 10.1 mg/dL 8.5-10.5 Total Protein 8.2 g/dL 6.0-8.0 Albumin 4.7 g/dL 3.2-5.5 Alkaline Phosphatase 73 U/L 42-121 AST (SGOT) 23 U/L 10-42 ALT (SGPT) 25 U/L 10-60 Total Bilirubin 0.5 mg/dL 0.2-1.0 Calculated GFR >60.0 mL/min/1.73sq >60 Anion Gap 16 mmol/L NR MAGNESIUM - 11/29/15 22:32 Magnesium 2.4 mg/dL 1.8-2.5 TSH, REFLEX TO FREE T4 - 11/29/15 22:32 TSHR 1.13 mIU/mL 0.34-5.60 COMPREHENSIVE METABOLIC PANEL - 12/19/15 15:50 Sodium 141 mmol/L 135-145 Potassium 4.2 mmol/L 3.6-5.0 Chloride 103 mmol/L 101-111 Carbon Dioxide, Total 28 mmol/L 21-31 Glucose Level 101 mg/dL 70-100 BUN 11 mg/dL 6-20 Creatinine 1.0 mg/dL 0.5-1.2 Calcium 9.3 mg/dL 8.5-10.5 Total Protein 7.1 g/dL 6.0-8.0 Albumin 4.1 g/dL 3.2-5.5 Alkaline Phosphatase 67 U/L 42-121 AST (SGOT) 19 U/L 10-42 ALT (SGPT) 24 U/L 10-60 Total Bilirubin 0.2 mg/dL 0.2-1.0 Calculated GFR >60.0 mL/min/1.73sq >60 Anion Gap 10 mmol/L NRG LIPASE - 12/19/15 15:50 Lipase 29 U/L 8-57 CBC With Platelet and Differential - 01/12/16 20:20 Absolute Basophils 0.02 10*3 0.00-0.20 Absolute Eosinophils 0.05 10*3 0.00-0.50 Absolute Lymphocytes 1.42 10*3 0.80-3.30 Absolute Monocytes 1.58 10*3 0.30-1.00 Absolute Neutrophils 7.04 10*3 1.90-7.00 Basophils 0 % 0-2 Eosinophils 1 % 0-4 HCT 42.9 % 42.0-52.0 HGB 14.6 g/dL 14.0-18.0 Immature Granulocytes 0.3 % 0.0-1.0 Lymphocytes 14 % 20-46 MCH 30.5 pg 27.0-32.0 MCHC 34.0 g/dL 32.0-36.0 MCV 89.6 fL 82.0-99.0 Monocytes 16 % 4-11 MPV 9.5 fL 9.4-12.3 Neutrophils 69 % 51-75 Nucleated RBC Automated 0.0 /100 WBC Platelet Count 218 K/uL 150-400 RBC 4.79 10*6/uL 4.60-6.20 RDW 13.4 % 11.5-14.5 WBC 10.1 K/uL 4.8-10.8 Basic Metabolic Panel (BMP) - 01/12/16 20:20 Anion Gap 6 NA 3-20 BUN 9 mg/dL 4-20 Calcium 9.0 mg/dL 8.6-10.0 Chloride 99 mEq/L 99-109 CO2 29 mEq/L 22-32 Creatinine 0.99 mg/dL 0.64-1.27 Glucose 103 mg/dL 70-100 Potassium 3.6 mEq/L 3.6-5.1 Sodium 134 mEq/L 136-144 eGFR - 01/12/16 20:20 eGFR >60 NA >60 Lactic Acid Venous - 01/12/16 23:55 Lactic Acid Venous 0.9 mEq/L 0.5-2.2 Urinalysis with reflex microscopic - 01/13/16 00:28 Appearance Clear NA Bilirubin Negative NA Negative Blood Negative NA Negative Color Yellow NA Glucose, Urine Negative Negative Ketones Negative Negative Leukocyte Esterase Negative NA Negative Nitrites Negative NA Negative pH 7.0 NA 5.0-8.0 Protein Negative NA Negative Specific [place] 1.005 NA 1.003-1.030 UA Collection type Clean Catch NA Urobilinogen Negative mg/dL <1.0 CREATINE KINASE (CPK) - 05/29/16 19:49 Creatine Kinase 132 U/L 22-269 COMPREHENSIVE METABOLIC PANEL - 05/29/16 19:49 Sodium 136 mmol/L 135-145 Potassium 4.0 mmol/L 3.6-5.0 Chloride 95 mmol/L 101-111 Carbon Dioxide, Total 23 mmol/L 21-31 Glucose Level 88 mg/dL 70-100 BUN 11 mg/dL 6-20 Creatinine 0.8 mg/dL 0.5-1.2 Calcium 9.4 mg/dL 8.5-10.5 Total Protein 7.6 g/dL 6.0-8.0 Albumin 4.2 g/dL 3.2-5.5 Alkaline Phosphatase 69 U/L 42-121 AST (SGOT) 20 U/L 10-42 ALT (SGPT) 16 U/L 10-60 Total Bilirubin 0.5 mg/dL 0.2-1.0 Calculated GFR >60.0 mL/min/1.73sq >60 Anion Gap 18 mmol/L NRG Encounters ACCT No. Visit Date/Time Discharge Status Pt. Type Provider Facility Loc./Unit Complaint [id number] 04/02/2016 14:48:00 ACT Outpatient [id number] 04/02/2016 14:00:57 ACT Outpatient LANDEN PEACE [facility] BLOOD CLOTS IN LEGS/ASKING FOR SONO [id number] 12/19/2015 14:59:46 [facility] [id number] 09/11/2015 15:52:07 ACT Outpatient ALANIS THOMAS [facility]
[2016-12-04] MEDS ORDERED: PROPOFOL 500mg 50 ML IV ONE (10:14)
[2016-12-04] MEDS ORDERED: LIDOCAINE 2% (20mg/ml) 5ml PF SDV ONE (10:14)
--- NOTE | 2016-12-04 10:16 | ANESPREOP ---
Anesthesia Record Date and Time DATE: 12/04/16 TIME: 10:14 Pre-Op Diagnosis rectal bleeding Proposed Surgical Procedure diagnositic colonoscopy NPO since: mn Allergies: Coded Allergies: No Known Drug Allergies (Unverified Allergy, Unknown, 11/07/15) Ht/Wt/BMI Height: 6 ' 2.00 " Weight: 108.900 kg BMI: 30.8 kg/m2 Vital Signs Date Time Temp Pulse Resp B/P Pulse Ox O2 Delivery O2 Flow Rate FiO2 12/04/16 09:28 53 12/04/16 09:23 97.7 16 125/63 99 Room Air Medications Inpatient Medications Current Medications Medications (Trade) Dose Ordered Sig/Vivek Start Time Stop Time Status Last Admin Dose Admin Lactated Ringer's (Lactated Ringers) 1,000 ml @ 50 mls/hr Q20H 12/04/16 07:00 12/04/16 09:35 50 MLS/HR Cyanocobalamin/Folic Acid (Vitamin P66-Dibuz Acid Tablet) 1 Each Tablet, 1 TAB PO DAILY, (Reported) Last Taken: on Unknown Date & Time Rivaroxaban (Xarelto) 20 Mg Tablet, 20 MG PO DAILY, (Reported) Last Taken: on 12/01/16 Currently on Beta Alyse: No Medical/Surgical History Anesthesia PMH: Reports: Clotting Problems (takes xareolto), Deep Vein Thrombosis (pulmonary embolism, been off his xerelto and his attending doctor is aware), Hiatal Hernia, Pneumonia (AGE 8 MOS,5,AND 6), Reflux, Sleep Apnea, Denies: Anesthesia Reactions (NO AIRWAY/INTUBATION PROBLEMS), Cancer, Glaucoma, Malignant Hyperthermia Smoking Status: Current every day smoker Has pt. smoked today?: No Past Surgical History Orthopedic Surgeries: Yes - ankle plate and screws left fibula Abdominal Surgeries: Genitourinary Surgeries: Cardiac Surgeries: Endocrine Surgeries: Reproductive Surgeries: Neurological Surgeries: Ear Surgeries: Nose Surgeries: Throat Surgeries: Yes - ADNOIDS Other Surgeries: Yes - WISDOM TEETH,INGROWN TOENAILS, filter placed and removed Anesthesia Adverse Reactions: FOUND none Family Hx of Anesthesia Advers: none Pertinent Findings EKG Rhythm: Sinus Rhythm Physical Exam Respiratory: Bilat breath sounds equal, Lungs clear Cardiovascular: FOUND Regular rate, rhythm, FOUND No murmur Airway Assessment Mallampati Score: I TMD: 3 Fingerbreadths Neck Extension: Good Overall Assessment: No Airway Concerns ASA: 2 Plan Anesthesia Plan: TIVA Discussion Discussed risks/options/alternatives of anesthesia and questions answered. Patient consents. Nursing pain assessment noted. Attestation Statement Prior to the delivery of any anesthetic medication, I examined the patient, developed the plan, obtained the patient's consent and discussed the risk and benefits of the procedure with the patient/guardian. PRAKASH MUELLER CRNA Dec 04, 2016 10:16
[2016-12-04] MEDS ORDERED: FENTANYL 100mcg/2ml INJECTION ONE (10:26)
--- NOTE | 2016-12-04 12:01 | ANESPO ---
Post-Op Note Date 12/04/16 Time: 10:50 Status Pt Participated in Evaluation: Pt participated in person Vital Signs Date Time Temp Pulse Resp B/P Pulse Ox O2 Delivery O2 Flow Rate FiO2 12/04/16 09:28 53 12/04/16 09:23 97.7 16 125/63 99 Room Air Respiratory Function: Airway patent Cardiovascular Function: Regular pulse Mental Status: Alert/oriented Pain Level Intensity: 0 Unable to Assess Pain Due To: Medicated/Sleeping Hydration: IV infusing Complications during Recovery None apparent Follow-Up Instructions Instructions Per Surgeon PRAKASH MUELLER CRNA Dec 04, 2016 12:01
--- NOTE | 2016-12-04 23:04 | OPNOTEF ---
DATE OF PROCEDURE: 12/04/2016 SURGEON: Estrada Babb MD PREOPERATIVE DIAGNOSIS Bright red blood per rectum. . POSTOPERATIVE DIAGNOSIS Bright red blood per rectum. PROCEDURE: Colonoscopy. ANESTHESIA: TIVA. BRIEF HISTORY Severino is a 21-year-old patient of Dr. Calero who presented to his office with bright red blood. It happened multiple times and significant enough they decided to proceed with colonoscopy. Please refer to Dr. Calero's office notes for the details. FINDINGS Upon colonoscopy there was no evidence for angiodysplastic lesions, polyps, diverticula, aixa malignancies. The patient did not have internal hemorrhoids but he did have some mild inflammation at the inside of his anus. DESCRIPTION OF PROCEDURE After informed consent was obtained, the patient was brought to the endoscopy suite and placed on the table in left lateral decubitus position. The patient subsequently underwent total intravenous anesthesia by the nurse catering manager per my request. Next, a digital rectal examination was performed. Normal sphincter tone. No rectal masses were appreciated. An Olympus colonoscope was inserted in the anus and advanced with the lumen of the colon under direct visualization at all times until the cecum was ascertained. Triangulation of the tenia coli, ileocecal valve and appendiceal lumen were all visualized. The scope was then slowly withdrawn, again while maintaining visualization of the lumen at all times. As stated above, the entire colon was without evidence for angiodysplastic lesions, polyps, diverticula or aixa malignancies. The scope continued to be withdrawn until it was brought forth back into the rectal vault. A J-maneuver was then performed. No worrisome perianal pathology was noted. The scope was allowed to straighten and was withdrawn through the anal verge. The patient tolerated the procedure without difficulty and was sent back to the preop area in stable condition. No etiology for Severino's bleeding was found on this colonoscopy. I suspect that there was something minor that was exacerbated by his blood thinners. If anything changes, let me know. TONYD
== END 2016-12-04 11:45 | disposition home or self-care (01) ==
LOC: NSC 09:09
PROVIDERS: ATTEND Family Medicine
DX: K62.5 Hemorrhage of anus and rectum (principal); K62.89 Other specified diseases of anus and rectum; K64.8 Other hemorrhoids; Z79.02 Long term (current) use of antithrombotics/antiplatelets; Z86.711 Personal history of pulmonary embolism; K21.9 Gastro-esophageal reflux disease without esophagitis
CPT/HCPCS: 45378; J2704; J3010; J7120